=== PATIENT | male | born 1960 | race Caucasian/White ===

== ENCOUNTER → 2016-11-10 | Outpatient (CLI) | payer OTHER ==
--- NOTE | 2016-11-11 06:28 | SPLIT NIGHT TECHNICIAN REPORT ---
[facility] Split Night Polysomnogram - Glue Specialty Supervisor Report Study date: 11/10/2016 Referring Physician: Katia EDGAR M.D. Name: BURTON MEEKS Glue Specialty Supervisor: MIGUEL Lyman. Date of : 1960 Height: 55 years, Height 5' 9" Sex: Male Weight: 178 lbs Age: 55 BMI: Medications: 26.28 NONE LISTED Patient History 55 yr-old male here for a baseline/split study. He has a history of loud snoring and daytime sleepiness. The test was started on room air. ETCO2 testing is included in this study. Room 1 Parameters Monitored NPSG: E1-M2, E2-M1, Fp1-M2, Fp2-M1, F3-M2, F4-M2, F4-M1, C3-M2, C4-M2, C4-M1, O1-M2, O2-M2, O2-M1, T3-M2, T4-M1, P3-M2, P4-M1, CHIN1, CHIN2, HR, EKG, Legs, PFLOW, SNOR, FLOW, CFLOW, Tidal Volume, THOR, ABDO, SpO2, PLTH, CPRESS, ETCO2 Wave, ETCO2, pH SLEEP SUMMARY DATA DIAGNOSTIC TREATMENT Lights Out: 10:02:15 PM 2:09:45 AM Lights On: 2:02:45 AM 5:37:45 AM Total Recording Time (TRT): 240.5 min. 208.0 min. Total Sleep Time (TST): 197.0 min. 176.0 min. NREM Time: 197.0 min. 140.0 min. REM Time: 0.0 min. 36.0 min. Sleep Period Time (SPT): 227.0 min. 185.5 min. Sleep Efficiency (SE): 82 % 85 % Sleep Latency: 13.5 min. 22.5 min. Arousal Index: 40.2 8.9 PAP Treatment Levels: 4, 6 * Optimal Pressure(s) SLEEP STAGING DATA DIAGNOSTIC TREATMENT Duration (min) TST % Duration (min) TST % Stage Wake: 43.5 min. -- 32.0 min. -- WASO: 30.0 min. -- 9.5 min. -- NREM: 197.0 min. 100 % 140.0 min. 80 % Stage N1: 118.0 min. 60 % 28.5 min. 16 % Stage N2: 79.0 min. 40 % 111.5 min. 63 % Stage N3: 0.0 min. 0 % 0.0 min. 0 % REM: 0.0 min. 0 % 36.0 min. 20 % POSITIONAL DATA Event Count Index Event Count Index Supine: 119 52.5 5 1.5 Supine NREM: 119 52.5 4 1.3 Supine REM: N/A N/A 1 2 Non-Supine: 7 5.1 0 0.0 Non-Supine NREM: 7 5.1 0 0.0 Non-Supine REM: N/A N/A 0 0.0 AROUSAL SUMMARY DATA: Event Count Index Event Count Index Apnea Arousals: 15 7.0 0 0.0 Hypopnea Arousals: 57 17.4 1 0.3 Snore Arousals: 3 0.9 2 0.7 PLM Arousals: 28 8.5 5 1.7 Non-Specific Arousals: 18 5.5 15 5.1 Total Arousals: 132 40.2 26 8.9 MYOCLONUS (PLM) Event Count Index Event Count Index PLM: 221 67.3 9 3.1 PLM AROUSAL: 28 8.5 5 1.7 PLM W/O AROUSAL 221 67.3 4 1.4 PLM W/RESP EVENT 34 0.0 0 0.0 MYOCLONUS (PLM) Event Count Index Event Count Index LM: 7 27.1 9 3.1 LM AROUSAL: 7 2.1 2 0.7 LM W/O AROUSAL LM W/RESP EVENT LM NON SPECIFIC 182 55.4 11 3.8 HEART RATE DATA DIAGNOSTIC TREATMENT Sleep (bpm): 60 54 REM (bpm): N/A 93 NREM (bpm): 91 92 Tachycardia Count: 0 0 Tachycardia Duration: 0.00 0 Bradycardia Count: 0 0 Bradycardia Duration: 0.00 0 DIAGNOSTIC PORTION TREATMENT PORTION RESPIRATORY DATA Event Count Index Event Count Index AHI: -- 35.6 -- 1.0 RDI: -- 38.4 -- 2 Obstructive Apnea: 19 5.8 0 0.0 Central Apnea: 3 0.9 0 0.0 Mixed Apnea: 1 0.3 0 0.0 Hypopnea: 94 28.6 3 1.0 RERA: 9 2.7 2 0.7 Total Apneas: 23 7.0 0 0.0 RESPIRATORY DATA REM NREM SLEEP REM NREM SLEEP Supine Position: Obstructive Apneas: N/A 18 18 0 0 0 Central Apneas: N/A 3 3 0 0 0 Mixed Apneas: N/A 1 1 0 0 0 Hypopneas: N/A 89 89 1 2 3 RERA N/A 8 8 0 2 2 Total Supine Events: N/A 119 119 1 4 5 Supine AHI: N/A 52.5 52.5 2 1.3 1.5 Supine RDI: N/A 56.3 56.3 2.4 2.6 2.5 REM NREM SLEEP REM NREM SLEEP Non-Supine Position: Obstructive Apneas: N/A 1 1 0 0 0 Central Apneas: N/A 0 0 0 0 0 Mixed Apneas: N/A 0 0 0 0 0 Hypopneas: N/A 5 5 0 0 0 RERA N/A 1 1 0 0 0 Total Supine Events: N/A 7 7 0 0 0 Supine AHI: N/A 5.1 5.1 0.0 0.0 0.0 Supine RDI: N/A 6.0 6.0 0.0 0.0 0.0 OXYGEN DESTAURATION DATA: Event Count Index Event Count Index REM Desaturations: N/A N/A 1 1.7 NREM Desaturations: 118 35.9 2 0.9 SNORE DATA DIAGNOSTIC TREATMENT Snore Time: 18.8 2:32:15 AM Snore TST%: 10 2 Snore Arousal Count: 3 2 Snore Arousal Index: 0.9 0.7 Desaturation Event Summary: Minimum %SpO2 Event Count Mean/Min/Max Duration(sec.) Desaturation Index % Time In Bed > 90 130 23.8 / 6.8 / 57.3 20.8 84.5 86 - 90 21 18.9 / 12.0 / 52.5 19.3 14.7 81 - 85 0 N/A 0.0 0.9 76 - 80 0 N/A 0.0 0.0 71 - 75 0 N/A 0.0 0.0 66 - 70 0 N/A 0.0 0.0 61 - 65 0 N/A 0.0 0.0 56 - 60 0 N/A 0.0 0.0 51 - 55 0 N/A 0.0 0.0 < 50 0 N/A 0.0 0.0 OXYGEN SATURATION DATA DIAGNOSTIC TREATMENT SpO2 Mean Sleep: 91 % 93 % SpO2 Mean REM: N/A % 93 % SpO2 Mean NREM: 91 % 92 % SpO2 Minimum Sleep: 80 % 87 % SpO2 Minimum REM: N/A % 87 % SpO2 Minimum NREM: 80 % 90 % Time Below 90% (TST): 29.1 0.6 Time Below 88% (TST): 8.2 0.2 Total REM NREM Awake <50% 0.0 min. 0.0 min. 0.0 min. 0.0 min. 51 - 60% 0.0 min. 0.0 min. 0.0 min. 0.0 min. 61 - 70% 0.0 min. 0.0 min. 0.0 min. 0.0 min. 71 - 80% 0.1 min. 0.0 min. 0.1 min. 0.0 min. 81 - 90% 69.0 min. 1.1 min. 58.2 min. 9.6 min. 91 - 100% 375.6 min. 34.9 min. 278.7 min. 62.0 min. Average 92 93 92 93 Minimum SpO2 80 87 80 84 Desaturation Event Index 17.7 1.7 21.4 9.5 # Desat. Events below 89% 78 1 74 3 Time(%) with Saturation below 89% 3.5 0.1 3.1 0.2 Time(min.) with Saturation below 89% 15.4 0.5 13.9 1.0 Recording Glue Specialty Supervisor Comments: Mr. Meeks slept in the right, left, and supine positions. No cardiac arrhythmias were noted. PLMs were noted. No bruxism noted. Snoring was noted and scored as a 2-3 on a scale of 1 through 5. (0=no snoring, 5=snoring loud enough to be heard through a closed door or down the torre way) At 2:03 am, he met specific Split-Night criteria during the diagnostic portion of this study. CPAP was initiated at +4 CMH2O and up-titrated to a level of +6 CMH2O, Cflex 2 which nearly eliminated all respiratory events and snoring. A Mirage FX Soft edge nasal mask size standard from [employer] was used during titration He did not wake up to use the restroom during the night. stated that he slept about the same as usual but tolerated the CPAP mask and pressure well. The final report will be interpreted and signed by a sleep physician. The completed physician report will then be placed in the patient medical record. Therapy Event: Therapy (cm H20) 0 4 6 Total Time at Pressure (min.) 240.5 27.8 180.2 TST at Pressure (min.) 197.0 4.3 171.7 # Periods 1 1 1 Sleep Onset (min.) 13.5 22.5 0.0 REM Onset (min.) N/A N/A 18.7 Sleep Efficiency % 81 15 95 Wakefulness (%) 18.1 84.6 4.7 Wakefulness (min.) 43.5 23.5 8.5 NREM 1 (%) 49.1 15.4 13.4 NREM 1 (min.) 118.0 4.3 24.2 NREM 2 (%) 32.8 0.0 61.9 NREM 2 (min.) 79.0 0.0 111.5 NREM 3 (%) 0.0 0.0 0.0 NREM 3 (min.) 0.0 0.0 0.0 REM (%) 0.0 0.0 20.0 REM (min.) 0.0 0.0 36.0 # Arousals 132 3 23 Arousal Index 40.2 42.1 8.0 # Snore 761 18 83 Snore Index 231.8 252.6 29.0 AHI 35.6 14.0 0.7 AHI Supine 52.5 14.0 1.1 AHI Non-Supine 5.1 N/A 0.0 NREM AHI 35.6 14.0 0.4 REM AHI N/A N/A 1.7 RDI 38.4 28.1 1.0 # Obstructive 19 0 0 # Central Ap 3 0 0 # Mixed 1 0 0 # Hypopneas 94 1 2 RERAS 9 1 1 Total Respiratory Events 126 2 3 Time Below SpO2 89.00% (min.) 13.9 0.0 0.5 Mean NREM SpO2 (%) 91 93 92 Mean REM SpO2 (%) N/A N/A 93 Mean Sleep SpO2 (%) 91 93 93 Min NREM SpO2 (%) 80 90 90 Min REM SpO2 (%) N/A N/A 87 Position Supine (min.) 126.8 4.3 113.6 Position Non-supine (min.) 70.2 0.0 58.2 LM Index Sleep 94.4 0.0 6.3 LM Index NREM 94.4 0.0 5.7 LM Index REM N/A N/A 8.3 Mean Heart Rate (bpm) 60 55 54 Min Heart Rate (bpm) 51 51 44
--- NOTE | 2016-11-16 09:34 | POLYSOMNOGRAPH REPORT ---
REFERRING PERSON: Dr. Sam Zambrano. SATELLITE INSTALLER: Josy Rowan. Mr. Acharya is a 55-year-old male with a history of loud snoring and daytime sleepiness. His [place] Sleepiness Scale score on the evening of this study is not recorded. BMI is 26.28. Mr. Acharya did qualify for a split night sleep study. He was observed for 197 minutes of sleep time. During that time, he had 60% N1 sleep and 40% N2 sleep. There were 132 arousals from sleep. Eighteen of those arousals were nonspecific, 28 were due to periodic limb movements, 3 were due to snoring and the remaining were due to respiratory events. There were 221 periodic limb movements noted during observation, 28 of which resulted in arousals. Mean saturation was 91% with desaturations with a respiratory event to 80%. There were 19 obstructive apneas, 3 central apneas and 1 mixed apnea. Additionally, there were 94 hypopneas and 9 RERA. Apnea-hypopnea index was 35.6 with an RDI of 38.4. Therefore, at 2:00 a.m., this patient was started on CPAP therapy. He used a Mirage FX nasal mask by [employer] for his titration. Increasing pressures were needed to prevent apneas, hypopneas and arousals. He was observed on a pressure of 6 for 171.7 minutes of sleep time. Thirty-six of those minutes were spent in supine REM sleep. AHI and RDI on this pressure were 0.7 and 1.0 respectively. Saturations were less than 89 for 0.5 minutes of that time. IMPRESSION AND PLAN: Successful split night sleep study in this patient with severe sleep apnea. I would recommend that he be started on a CPAP at a pressure of 6. A download can be reviewed in 1 month both to check compliance as well as apnea-hypopnea index and further pressure adjustments can occur at that time.
== END | disposition home or self-care (01) ==
LOC: C.NEUR 21:00
PROVIDERS: ATTEND Family Medicine
DX: G47.30 Sleep apnea, unspecified (principal); R06.83 Snoring; I10 Essential (primary) hypertension